=== PATIENT | female | born 1990 | race Two or more races ===

== ENCOUNTER 2024-03-11 03:48 | Outpatient (CLI) | payer OTHER ==
[2024-03-11 02:45] VITALS: BP 100/67
[2024-03-11] MEDS ORDERED: TERBUTALINE SULFATE 1 MG/ML AMPUL SUBCUTANEO ONE (04:15)
[2024-03-11] MEDS ORDERED: RINGERS SOLUTION,LACTATED 1,000 ML IV SCH (04:15)
[2024-03-11] MEDS ORDERED: PRENATAL CAPLE1 EAC1 PO (04:19)
[2024-03-11 04:34] LABS: HEMATOCRIT 28.6 % (36.0-45.00); HEMOGLOBIN 9.6 g/dL (12.0-15.00); MEAN CELL VOLUME 87.4 fL (80.00-100.00); MEAN CORPUSCULAR HEMOGLOBIN 29.3 pg (27.00-32.0); MEAN CORPUSCULAR HGB CONC 33.5 g/dl (32.0-36.0); PLATELET COUNT 279 K/uL (150-450); RED BLOOD COUNT 3.27 M/uL (4.00-6.00); RED CELL DISTRIBUTION WIDTH 14.6 % (11.5-14.5)
[2024-03-11 06:46] LABS: URINE APPEARANCE Clear; URINE BILIRRUBIN Negative (NEGATIVE); URINE BLOOD Negative; URINE COLOR Yellow; URINE GLUCOSE Negative (NEGATIVE); URINE KETONE 15 (NEGATIVE); URINE LEUKOCYTE Negative; URINE NITRATE Negative; URINE PROTEIN Negative (NEGATIVE); URINE UROBILINOGEN 0.2 E.U./dl
[2024-03-11 06:52] LABS: URINE EPITHELIAL CELLS 6.4 uL (0.0-38.8); URINE WBC 7.9 uL (0.0-23.2)
[2024-03-11 06:59] LABS: URINE CAST 0.14 uL (0.0-1.40); URINE RBC 1.6 uL (0.0-20.8)
[2024-03-11 07:32] VITALS: BP 98/60
[2024-03-11 11:11] VITALS: BP 101/63
[2024-03-11 15:26] VITALS: BP 90/58
[2024-03-11 17:21] VITALS: BP 90/58
== END 2024-03-11 17:21 | disposition home or self-care (01) ==
LOC: OBS/DEL 03:48
PROVIDERS: ATTEND Obstetrics & Gynecology
DX: O26.892 Other specified pregnancy related conditions, second trimester (principal); Z3A.27 27 weeks gestation of pregnancy; R10.2 Pelvic and perineal pain

== ENCOUNTER 2024-04-15 09:04 | Inpatient (IN) | payer OTHER ==
[~2024-04-15] VITALS: Ht 160 cm; Wt 3.6 kg
[~2024-04-15 09:04] MED LIST: PRENATAL CAPLE1 EAC1 PO
[2024-04-15 10:28] VITALS: BP 120/70
[2024-04-15 11:35] LABS: HEMOGLOBIN 10.5 g/dL (12.0-15.00); MEAN CELL VOLUME 85.7 fL (80.00-100.00); MEAN CORPUSCULAR HGB CONC 33.8 g/dl (32.0-36.0); PLATELET COUNT 257 K/uL (150-450); RED BLOOD COUNT 3.62 M/uL (4.00-6.00); RED CELL DISTRIBUTION WIDTH 15.2 % (11.5-14.5)
[2024-04-15 11:42] LABS: PH,URINE 6.5 (5.0-8.0); URINE APPEARANCE Clear; URINE BILIRRUBIN Negative (NEGATIVE); URINE BLOOD Negative; URINE COLOR Yellow; URINE GLUCOSE Negative (NEGATIVE); URINE KETONE Negative (NEGATIVE); URINE LEUKOCYTE Negative; URINE NITRATE Negative; URINE PROTEIN Negative (NEGATIVE); URINE UROBILINOGEN 0.2 E.U./dl
[2024-04-15 11:46] LABS: URINE BACTERIA 759.8 uL (0.0-1933); URINE EPITHELIAL CELLS 11.3 uL (0.0-38.8); URINE RBC 6.7 uL (0.0-20.8); URINE WBC 4.2 uL (0.0-23.2)
[2024-04-15 12:01] LABS: INR < 0.93; PARTIAL THROMBOPLASTIN TIME 25.9 SECONDS (22.0-34.0)
[2024-04-15 12:38] VITALS: BP 129/71
[2024-04-15] MEDS ORDERED: OXYTOCIN 10 UNITS/ML VIAL ONE ×2 (14:07→14:10)
[2024-04-15] MEDS ORDERED: ERYTHROMYCIN BASE OPHT 1GM EACH TUBE OP ONE (14:13)
[2024-04-15] MEDS ORDERED: CEFOXITIN SODIUM 2,000 MG VIAL IV ONE (15:28)
[2024-04-15] MEDS ORDERED: KETOROLAC TROMETHAMINE 60 MG VIAL IM STA (15:41)
[2024-04-15] MEDS ORDERED: PROMETHAZINE HCL 25 MG/ML AMPUL IM PRN (15:45)
[2024-04-15] MEDS ORDERED: CHLORHEXIDINE GLUCONATE 120 ML BOTTLE TOP SCH (15:45)
[2024-04-15] MEDS ORDERED: RINGERS SOLUTION,LACTATED 1,000 ML IV SCH (15:45)
[2024-04-15] MEDS ORDERED: MEPERIDINE HCL/PF 25 MG/ML VIAL IM PRN (15:45)
[2024-04-15] MEDS ORDERED: OXYTOCIN 1,000 ML IV SCH (15:45)
[2024-04-15] MEDS ORDERED: MORPHINE SULFATE 4 MG/ML VIAL IV ONE (16:25)
[2024-04-15] MEDS ORDERED: KETOROLAC TROMETHAMINE 60 MG VIAL IM ONE ×2 (17:12→17:25)
[2024-04-15 19:13] LABS: HEMATOCRIT 30.4 % (36.0-45.00); HEMOGLOBIN 10.4 g/dL (12.0-15.00); MEAN CELL VOLUME 84.9 fL (80.00-100.00); MEAN CORPUSCULAR HEMOGLOBIN 29.1 pg (27.00-32.0); MEAN CORPUSCULAR HGB CONC 34.2 g/dl (32.0-36.0); PLATELET COUNT 272 K/uL (150-450); RED BLOOD COUNT 3.58 M/uL (4.00-6.00); RED CELL DISTRIBUTION WIDTH 14.7 % (11.5-14.5)
[2024-04-16] VITALS: BP 104/69
[2024-04-16 04:00] VITALS: BP 108/61
[2024-04-16 08:00] VITALS: BP 92/57
[2024-04-16] MEDS ORDERED: OxyCODONE HCL/APAP UD (PERCOCET) PO PRN ×2 (09:00→16:15)
[2024-04-16] MEDS ORDERED: IBUprofen 600 MG TABLET PO PRN (12:45)
[2024-04-16 16:45] VITALS: BP 115/78
[2024-04-17 01:41] VITALS: BP 98/66
[2024-04-17 07:38] VITALS: BP 109/72
== END 2024-04-17 16:46 | disposition home or self-care (01) | DRG 788 ==
LOC: LDR 09:04 → OB/GYN 09:04 → LDR 11:04 → OB/GYN 14:01
PROVIDERS: ADMIT Obstetrics & Gynecology; ATTEND Obstetrics & Gynecology
PROC: 4A1HXCZ Monitoring of Products of Conception, Cardiac Rate, External Approach (ICD-10-PCS; 2024-04-15)
PROC: 10D00Z1 Extraction of Products of Conception, Low, Open Approach (ICD-10-PCS; principal; 2024-04-15 15:45)
DX: O36.63X0 Maternal care for excessive fetal growth, third trimester, not applicable or unspecified (principal); O33.5XX0 Maternal care for disproportion due to unusually large fetus, not applicable or unspecified; Z3A.39 39 weeks gestation of pregnancy; Z37.0 Single live birth

== ENCOUNTER 2024-04-23 12:58 | Outpatient (CLI) | payer OTHER ==
[2024-04-23 13:36] LABS: HEMATOCRIT 31.5 % (36.0-45.00); HEMOGLOBIN 10.4 g/dL (12.0-15.00); MEAN CELL VOLUME 85.1 fL (80.00-100.00); MEAN CORPUSCULAR HEMOGLOBIN 28.2 pg (27.00-32.0); MEAN CORPUSCULAR HGB CONC 33.1 g/dl (32.0-36.0); PLATELET COUNT 451 K/uL (150-450); RED CELL DISTRIBUTION WIDTH 14.9 % (11.5-14.5)
== END 2024-04-23 13:03 | disposition home or self-care (01) ==
LOC: LAB 12:58
DX: R10.2 Pelvic and perineal pain (principal)